=== PATIENT | male | born 1955 | race Caucasian/White ===

== ENCOUNTER 2023-07-10 18:34 | Emergency (ER) | payer OTHER, SELFPAY ==
[2023-07-10 18:50] VITALS: BP 124/79
[2023-07-10 22:20] VITALS: BP 128/74
--- NOTE | 2023-07-10 23:29 | ED.SKININJ ---
HPI-Injury
General
Chief Complaint: Head Injury
Source: patient
Exam Limitations: none
Time Seen by Provider: 07/10/23 20:27
Nursing documentation reviewed up to this point in time: agreed with
Travel History
Have you had any contact with someone who has COVID-19?: No
Do you have any symptoms of coronavirus? Fever > 100 degrees, chills, cough, shortness of breath, sore throat, loss of taste or smell, muscle aches, or headache?: No
History of Present Illness-Injury
Is this injury a work related problem?: No
Is pt an associate of [facility]?: No
Initial Injury comments:
Patient sttaes he tripped and fell in his driveway. No LOC. Able to get self up and into home. Sustained large laceration to his forehead. He was taken to by family for eval. WOund care was provided. Incident occurred today. Daughter states
that patients speech was slurred. Brought to ED for eval. Denies headache, dizziness, blurred vision. Complains of right hand pain and swelling.
Past History
Past History
ED Past Medical History: Cancer (renal)
ED Past Surgical History: Urological
Social History
Living: with family
Review of Systems
Review of Systems
Allergies reviewed?: Yes
All Other Systems: ROS reviewed and negative except as documented in HPI and ROS
Constitutional: Reports no symptoms
EENT: Reports no symptoms
Respiratory: Reports no symptoms
Cardiac: Reports no symptoms
ABD/GI: Reports no symptoms
: Reports no symptoms
Musculoskeletal: Reports joint pain (Pain to right dorsal hand)
Skin: Reports other (abrasion to forehead)
Neurological: Reports other (slurred speech)
Psychiatric: Reports no symptoms
Skin Exam
Abrasion
Right Forehead:
Description of abrasion: superfical/clean
Phy Exam
General Physical Exam
General Presentation: well appearing and no apparent distress
General age: appears stated age
General Skin: warm and dry
General Habitus: normal
Eye Exam
Eye Exam: PERRL and EOMI
Neurological Exam
Neurological Exam: alert, oriented x3, CN II-XII intact, no motor deficits and speech normal (no slurring of speech. No facial droop, no weakness in extremities.)
[place] Coma Scale
Eye Opening: Spontaneous
Verbal Response: Oriented
Motor Response: Obeys Commands
GCS Total Score: 15
Musculoskeletal Exam
Musculoskeletal Exam: full ROM and neuro vasc intact
Skin Exam
Skin Exam: normal color, warm/dry and no rash
Psychiatric Exam
Psychiatric Exam: normal mood/affect
Course
Orders/Labs/Results
Orders:
Orders
07/10/23 18:[address] [CT Head W/o Iv Contrast] Urgent
Comment:
Reason For Exam: head injury, hit asphault
07/10/23 20:54
Hand, Right 3 View [CR Hand - Right Min 3 Views] Urgent
Comment:
Reason For Exam: trauma
Vital Signs
Initial and Last Documented VS:
Initial Vital Signs
Temp Pulse Resp BP Pulse Ox
97.7 F 60 20 124/79 97
07/10/23 18:50 07/10/23 18:50 07/10/23 18:50 07/10/23 18:50 07/10/23 18:50
Last Documented Vital Signs
Temp Pulse Resp BP Pulse Ox
97.7 F 64 20 128/74 99
07/10/23 18:50 07/10/23 22:20 07/10/23 22:20 07/10/23 22:20 07/10/23 22:20
*Radiology
Radiology exam reviewed: radiology read reviewed
*Pulse Oximetry
Patient hypoxic: no
*Critical Care Note
Total Time (30-74mins, 75-104mins- exclusive of procedures): Not Applicable
ED Attending Note
-
Portions of this chart may have been created with voice recognition software.� Occasional wrong word or��sound alike� substitutions may have occurred due to the inherent limitations of voice recognition software.
Discharge Plan
Departure
Patient Disposition: Home (Routine Discharge)
Date of Disposition: 07/10/23
Time of Disposition: 22:19
Patient with high blood pressure during this ER visit?: No
Condition: Good
Covid-19: Not Applicable
Discharge Problem:
Head injury, Contusion of hand
Instructions: Concussion, Adult (DC), Wound Care (DC), Head Injury in Adults (DC), Contusion (DC)
Prescriptions:
No Action
atorvastatin 10 MG tablet
10 mg PO DAILY
cephalexin [Keflex] 500 MG capsule
500 mg PO QID 12 Days Qty: 48 0RF
Referrals:
Luis Mehta MD [Family Provider] - Follow up in 2-3 days
Interventions
Interventions:
*Risk Screen - Suicide Last Done: 07/10/23 20:08
*General Assessment Last Done: 07/10/23 20:08
*Neglect/Abuse Screening Last Done: 07/10/23 20:08
ED- Fall Risk Assessment Last Done: 07/10/23 20:08
*ED COVID-19 Vaccine History Last Done: 07/10/23 20:08
*Nursing Disposition Last Done: 07/10/23 22:20
ED- Neurological Assessment Last Done: 07/10/23 20:08
Discharge Date and Time
Discharge Date/Time: 07/10/23 22:23
Musculoskeletal Injury Exam
Musculoskeletal Injury Exam
Right Dorsal Hand:
Pain with Movement?: Moderate
Tender to palpation?: Moderate
Soft tissue swelling?: Moderate
External deformity and angulation?: None
Joint effusion?: None
Contusion?: Moderate
Hematoma-local bleeding into tissue?: None
Strain- Sprain- Tear (Connective tissue injury)?: Moderate
Crepitus with movement?: No
Joint instability?: No
Malalignment/deformity?: No
Range of motion: Full
Distal skin color and temperature: normal-warm & good color
Capillary Refill: normal
Normal distal neurovascular exam?: Yes
Peripheral Pulses: radial (right): 3+
== END 2023-07-10 22:23 | disposition home or self-care (01) ==
LOC: EMR 18:34
PROVIDERS: EMERGENCY PHYSICIAN Emergency Medicine; FAMILY PHYSICIAN Family Medicine
DX: S01.81XA Laceration without foreign body of other part of head, initial encounter (principal); S60.221A Contusion of right hand, initial encounter; W01.0XXA Fall on same level from slipping, tripping and stumbling without subsequent striking against object, initial encounter
CPT/HCPCS: 99284; 70450; 73130

== ENCOUNTER → 2025-03-06 17:18 | Outpatient (REF) | payer OTHER, SELFPAY | LOC: RAD 17:18 | PROVIDERS: ATTENDING PHYSICIAN Family Medicine | DX: M25.571 Pain in right ankle and joints of right foot (principal); E66.3 Overweight | CPT/HCPCS: 73610 ==